=== PATIENT | male | born 1955 | race Caucasian/White ===

== ENCOUNTER 2025-03-06 13:54 | Outpatient (CLI) | payer BC, SELFPAY ==
--- NOTE | 2025-03-06 14:09 | ECG_ITS ---
Test Date: 2025-03-06 14:19:40 Measurements Intervals Elmer Rate: 75 P: -5 DE: 167 QRS: 25 QRSD: 88 T: 17 QT: 351 QTc: 394 Interpretive Statements SINUS RHYTHM No previous ECG available for comparison Electronically Signed On 03-06-2025 14:51:26 CDT by Blanco Dee M.D.
== END 2025-03-06 13:55 | disposition home or self-care (01) ==
LOC: ANHSURGERY 14:00
PROVIDERS: Visit Provider Urology
DX: I10 Essential (primary) hypertension (principal)
CPT/HCPCS: 93005

== ENCOUNTER 2025-03-13 00:42 | Day surgery (SDC) | payer BC, SELFPAY ==
[2025-03-04 10:17] VITALS: BMI 24.0
--- NOTE | 2025-03-04 10:27 | PC.NURSE ---
Report to the Outpatient Waiting Room, entrance under the green pavilion located off [facility], at time __06:15am on date __03/13/25 . Planned Procedure Time: 08:15am .? Time changes happen often and if your time is changed the preop area will call you the afternoon before. - You and your visitor will be asked to self-screen and do not enter if you have any COVID symptoms. Please call surgeon if you need to reschedule. - A mask is optional within the hospital at this time. Patients may have clear liquids (water, carbonated beverages, clear teas, apple juice) until 3 hours prior to surgery with a maximum of 20 ounces. - No food from midnight until time of surgery and no smoking, or chewing tobacco (or any form of nicotine). No chewing gum, candy or mints. (0515am) Take only the following medications with a SIP of water on the morning of surgery: ____Amlodipine and Metoprolol DO NOT STOP ANY OF YOUR OTHER PRESCRIPTION MEDICATIONS PRIOR TO SURGERY EXCEPT THE FOLLOWING Hold all vitamins and supplements for 3 days per anesthesiologist. Medications to discontinue per physician NONE Date to take last dose____NONE Please no make-up, nail german, hairspray, perfume, deodorant, or body powder the day of surgery.? No jewelry (including any body piercings) or valuables the day of surgery, leave them at home.? Please take a shower or bath the night before, or the morning of, surgery with an antibacterial soap.? Wear comfortable, loose fitting clothing.? - Jewelry must be removed prior to entering the operating room.? Rings and piercings that are not removed may be cut off. - The hospital will not accept responsibility for valuables.? - Please leave all valuables, including medications, at home the day of surgery. If you are going home after surgery, a licensed six horse hitch driver must drive you home.? - NO public transportation without another adult if you receive anesthesia. - We recommend that an adult stay with you for 24 hours following discharge. - We also recommend that you do not drive, make important decision, drink alcoholic beverages, or take any drugs that were not prescribed by your health care provider for at least 24 hours after your discharge time. Follow any additional instructions given to you from your surgeon. Telephone instructions given to ___Patient and asked if any additional questions and then verbalized understanding. Patient advised to call surgeon office or pre surgery nurse liaison [phone] if any additional questions.
[2025-03-13] VITALS (10 sets, daily range): BP systolic 86–126; BP diastolic 49–75; PULSE 63–80; RESP 15–21; TEMP 36.2–37; O2SAT 97–100
--- NOTE | ~2025-03-13 | XR_ITS ---
XR fluoroscopy no charge Indication: Right retrograde TECHNIQUE: Fluoroscopy used during right retrograde performed by [Randall Montgomery MD] on 03/13. 3 seconds of fluoroscopy with 2 fluoroscopic images captured. FINDINGS: Correlate with procedure note. IMPRESSION: Fluoroscopy used during right retrograde. Reviewed, dictated and finalized at location A.
--- OUTSIDE RECORDS SUMMARY | 2025-03-13 00:44 | XMS_ITS | Clinical Summary ---
Author Organization [facility] Address [address] [place] [address] Care Team Providers Care Life Guard Name Role Phone Unavailable Primary Care Provider Unavailabl e Source Comments [facility],non-owned Affiliates and Associated Physician Practices is amultiple site organization consisting of ambulatory clinics and hospital sitesin [place], [place], [place] and [place]. This disclosure is being madepursuant to the Care Everywhere program and may not contain all information available regarding this patient. Last updated 18.[facility] Social History Tobacco Use Types Packs/Day Years Used Date Smoking Tobacco: Never Assessed Sex and Gender Information Value Date Recorded Sex Assigned at Not on file Legal Sex Male 5:53 AM [employer] Gender Identity Not on file Sexual Orientation Not on file Plan of Treatment Health Maintenance Due Date Last Done Comments COLOGUARD (AGES 45-75) - COL ON CA SCREENING 1955 COLON MONITORING 1955 COLONOSCOPY - COLON CA SCREENING 1954 CT COLONOGRAPHY - COLON CA SCREENING 1955 Colorectal Cancer Screening 1955 FIT - COLON CA SCREENING 1955 FLEX SIG - COLON CA SCREENING 1954 LIPID TESTING 1955 HEPATITIS C SCREENING 11/12/1972 DTAP/TDAP/TD VACCINES (1 - Tdap) 1973 PNEUMOCOCCAL VACCINE 50+ (1 of 1 - PCV) 2004 ZOSTER VACCINE (1 of 2) 2004 COVID-19 VACCINE ( - 2023-2 5 season) 2024 DEPRESSION SCREENING 08/21/2024 INFLUENZA VACCINE (#1) 2025 Respiratory Syncytial Virus (RSV) Vaccine Pt: or over 60 yrs (1 - 1-dose 75+ series) 2029 HEPATITIS B VACCINE Aged Out No longe r eligible based on patient's age to complete this topic HIB VACCINE Aged Out No longer eligi ble based on patient's age to complete this topic HPV VACCINE Aged Out No longer eligi ble based on patient's age to complete this topic MENINGOCOCCAL (Group B) VACC INE SHARED DECISION-MAKING Aged Out No longer eligibl e based on patient's age to complete this topic MENINGOCOCCAL GROUPS A/C/Y/W VACCINE Aged Out No longer eligible b ased on patient's age to complete this topic
--- NOTE | 2025-03-13 06:35 | WPDHPUPDATE1 ---
History and Physical Update Update Date/Time: 03/13/25 06:35 History and Physical has been reviewed, including an updated exam of the patient. There are NO changes in the patient's condition. Risks, benefits, and alternatives have been discussed and questions answered. Patient agrees to proceed with procedure.
--- NOTE | 2025-03-13 07:49 | WPDANESEPPF ---
Anes - Initial Pre Proc Eval Procedure: Operation Date: 03/13/25 08:15 Proposed Procedures p Transurethral Resection Bladder Tumor with Gemcitabine Instillation - Randall Montgomery MD s Cystoscopy, Right Retrograde Pyelogram, Possible Right Ureteral Stent - Randall Montgomery MD Date/Time: 03/13/25 07:49 Surgeon: Randall Montgomery MD Pre Op Diagnosis: bladder tumor Patient Data Age: 69 Gender: M Height: 1.75 m Weight: 71.6 kg Last Vital Signs Temp 98.6 F 03/13/25 07:11 Pulse 79 03/13/25 07:11 Resp 16 03/13/25 07:11 BP 115/54 L 03/13/25 07:11 Pulse Ox 97 03/13/25 07:11 O2 Del Method Room Air 03/13/25 07:11 Allergies Allergy/AdvReac Type Severity Reaction Status Date / Time codeine AdvReac Severe Vomiting Verified 03/13/25 06:16 Home Medications ?Medication ?Instructions ?Recorded ?Confirmed ?Type amlodipine 10 mg tablet 10 mg PO DAILY 03/03/25 03/13/25 History lisinopril 40 mg tablet 40 mg PO BID 03/04/25 03/13/25 History metoprolol succinate 50 mg 50 mg PO DAILY 03/04/25 03/13/25 History tablet,extended release 24 hr tamsulosin 0.4 mg capsule 0.4 mg PO HS 03/04/25 03/13/25 History Patient hx anesthesia problems: none Family hx anesthesia problems: none Results Review: All pre-operative results and documents have been reviewed as part of the pre-operative evaluation. [facility] Social History Social History Smoking packs per day: 1 Smoking cigarettes per day: 20.0 Years smoked: 13 Smoking pack-years: 13.00 Smoking status: Former smoker Tobacco type: cigarettes Smoking end date: 08/21/84 Alcohol intake: current Drinks per week: 3 Substance use: never Living arrangements: alone Spiritual care concerns: No Anes - Eval Final PreProcedure Day of Procedure 03/13/25 07:49 Patient weight: normal Lungs: normal air movement Airway: Mallampati scale and special considerations (L upper incisor is falling out, caudad in the mouth. Not apparently loose but in poor condition. ) Neurological: alert and oriented Last oral intake: >/= 8 hours ASA classification: II Emergent: no Anesthetic plan: proceed Anesthesia type and monitoring: general LMA and standard monitoring Results Review: All pre-operative results and documents have been reviewed as part of the pre-operative evaluation. HTN, ex smoker, quit 1970s. Informed Consent: The patient's anesthetic plan and its attendant risks and benefits were discussed with the patient/family/POA. Questions were solicited and answers provided to the satisfaction of the patient/family/POA.
[2025-03-13] MEDS: ceFAZolin 2 GM in SODIUM CHLORIDE 0.9% IV 50 ML 100 ML IVPB (07:56)
[2025-03-13] MEDS: LIDOCAINE 2% GEL UROJET 10 ML PKG MUCOUS MEM (08:14)
--- NOTE | 2025-03-13 08:28 | S_PTH ---
PATIENT: Néstor Urbano LOC: [facility] U#:[id number] AGE/SX: 69/M ROOM: RE03/13/[address]: Randall Montgomery MD : 1955 BED: DIS: 03/13/2025 SPEC #: [id number] RECD: 03/13/25 10:02 STATUS: FRANCHESKA REViky #: [id number] CATHERINE: 03/13/25 08:[address]: Randall Montgomery DEPT: [facility] Surgical RECD BY: Cherrie Geiger Tissues: A - Bladder Tumor B - Bladder Tumor Procedures: Hematoxylin and Eosin Stain Gross and Microscopic Level 4
--- NOTE | 2025-03-13 08:47 | W.PM.PROC2 ---
Procedure Note - Detailed Date of Procedure 03/13/25 Pre-op Diagnosis Bladder tumor Post-op Diagnosis Same Procedure Performed 1. TURBT (large, 5-6 cm) 2. Attempted (unsuccessful) right retrograde pyelogram Surgeon Randall Montgomery MD Anesthesia General Description of Procedure Patient is brought to the operative suite was prepped and draped in routine sterile fashion while in dorsal lithotomy position after the uneventful induction of a general LMA anesthetic. Neck 1st perform cystoscopy with a 21 F rigid cystoscope. He has no urethral stricture and modest lateral lobe hyperplasia of the prostate (estimated prostatic urethral length 2 cm). The bladder shows this is very unusual solid or neoplasm involving the right brenden trigone and much of the right posterior lateral bladder wall. Probably measures 5-6 cm in diameter. I made an exhaustive attempt to identify the right ureteral orifice. The left ureteral orifices clearly identified but I do not see anything symmetrically positioned right. I exchanged the cystoscope for a 24 F resectoscope. I was able to resect grossly the entire very solid unusual neoplasm. Throughout resection I periodically exchanged the resectoscope for a cystoscope and made attempts to identify the right ureteral orifice either visually or with the aid of a wire/Hammett catheter. Unfortunately throughout I was unable to identify the right ureteral orifice and therefore could not place a stent. Again, I grossly entirely resected the solid neoplasm. It was, at times, difficult to identify the junction between neoplasm in his true bladder wall. I sent separate specimens from the body of the neoplasm and the base. The base of the resected site was cauterized both the loop and rollerball. Resectoscope was removed and a [address] catheter was placed. Efflux was clear at the termination. Drains Yes Packing No Pathology Yes Complications No immediate complications Condition Stable
[2025-03-13] MEDS: LACTATED RINGERS 1,000 ML 30 ML IV CONT ×2 (08:51→08:55)
--- NOTE | 2025-03-13 08:51 | W.PM.PROC2 ---
Procedure Note - Detailed Date of Procedure 03/13/25 Pre-op Diagnosis Bladder tumor Post-op Diagnosis Same Procedure Performed Gemcitabine installation Surgeon Randall Montgomery MD Anesthesia General Description of Procedure With the patient in the supine position, a 16F Hernandez catheter is placed using sterile technique. Using a protective facemask, gown and double layer of gloves Gemcitabine 2gm in 100cc saline is administered through the catheter/into the bladder. The catheter is then plugged. Patient was instructed to lie supine x20min, then to roll both the left and right x20 min. each. Total dwell time will be 60 min., after which the bladder will be drained and catheter removed. Drains No Packing No Pathology Yes Complications No immediate complications Condition Stable Disposition PACU
[2025-03-13] MEDS: SODIUM CHLORIDE 0.9% IV 23.7 ML, GEMCITABINE HCL 1,000 MG BLADDER ×2 (08:59)
[2025-03-13] MEDS: fentaNYL CITRATE INJ (*CRX) 100 MCG/2 ML VIAL 25 MCG IV PUSH ×4 (09:05→09:50)
[2025-03-13] MEDS: SODIUM CHLORIDE 0.9% IV 50 ML BAG 150 ML IRRIGATION (10:25)
== END 2025-03-13 11:10 | disposition home or self-care (01) ==
PROVIDERS: Visit Provider Urology
PROC: 0TBB8ZZ Excision of Bladder, Via Natural or Artificial Opening Endoscopic (ICD-10-PCS; CPT 52240; principal; 2025-03-13 08:15)
PROC: (CPT 52352; 2025-03-13 08:15)
DX: C67.8 Malignant neoplasm of overlapping sites of bladder (principal); N40.0 Benign prostatic hyperplasia without lower urinary tract symptoms; I10 Essential (primary) hypertension; Z98.890 Other specified postprocedural states; Z87.891 Personal history of nicotine dependence
CPT/HCPCS: 52240; 51720; 88305; 99199; J0690; C1758; C1769; J1100; J2405; J2704; J3010; J7120; J9201; Q9966